=== PATIENT | female | born 1995 | race Hispanic/Latino ===

== ENCOUNTER 2020-09-08 22:49 | Emergency (ER) | payer BC ==
[~2020-09-08] VITALS: Ht 154.9 cm; Wt 86.2 kg
[2020-09-08] MEDS ORDERED: KETOROLAC TROMETHAMINE 30 MG/ML VIAL IV STA (23:31)
[2020-09-08] MEDS ORDERED: KETOROLAC TROMETHAMINE 30 MG/ML VIAL ONE (23:42)
[2020-09-08 23:58] VITALS: BP 131/70
== END 2020-09-08 23:58 | disposition home or self-care (01) ==
LOC: FSED 23:15
DX: R07.89 Other chest pain (principal); Q67.6 Pectus excavatum
CPT/HCPCS: 71046; 80048; 84484; 85025; 93005; 96374; 99283; J1885